=== PATIENT | male | born 1990 | race Caucasian/White ===

== ENCOUNTER 2022-02-10 17:33 | Emergency (ER) | payer SELFPAY ==
--- NOTE | ~2022-02-10 | XR_ITS ---
EXAM: XR hand RT min 3V DATE: 02/10/2022 18:51 HISTORY: crushed hand . COMPARISON: None available. FINDINGS: Normal mineralization. No fracture or dislocation. No lytic or blastic lesion. Joint space s are maintained. No erosion or periosteal change. Soft tissues within normal limits. IMPRESSION: No acute osseous finding in the right hand. Reviewed, dictated and finalized at location K. R
[2022-02-10 17:46] VITALS: BP 131/79; PULSE 92; RESP 18; TEMP 36.9; O2SAT 98
--- NOTE | 2022-02-10 18:15 | ED.UPPEXIN ---
HPI - Extremity Injury (Upper) General Chief Complaint: Extremity Injury, Upper Stated Complaint: right hand pain Time Seen by Provider: 02/10/22 18:00 Source: patient Mode of arrival: ambulatory Limitations: no limitations History of Present Illness HPI narrative: Paul is a 31-year-old male patient presenting to the clinic today with complaints of right hand injury and right foot pain. He reports that he crushed his hand in between 2 pieces the rebar that was approximately 2000 lb per patient. He states he is unable to make a fist with his right hand and has pain to the base of the right thumb and 3rd and 4th fingers- Pain is radiating up his arm. He also reports that he has swelling to the right great toe joint that has come and gone. Related Data Allergies Allergy/AdvReac Type Severity Reaction Status Date / Time ketorolac [From Toradol] Allergy Hives Verified 02/10/22 17:49 tramadol Allergy Hives Verified 02/10/22 17:49 Review of Systems Review of Systems: Pertinent positives per HPI. Patient denies any fever, chills, rash, headache, visual changes, dizziness, cough, runny nose, sore throat, shortness of breath, chest pain, palpitations, nausea, vomiting, diarrhea, constipation, abdominal pain, or any urinary issues. PMFSH Comments At the time of my signature, I reviewed and agree with the nursing past medical, surgical, social, and family history. There is no relevant family history pertinent to the patient complaint. Exam Narrative: General: Well-developed, well nourished, in no apparent distress Head: Normocephalic, atraumatic. Cardio: Regular rate and rhythm, s1 and s2 normal, no murmur appreciated. Resp: Clear to auscultation bilaterally, no rhonchi, rales, wheezing or rubs. Musculoskeletal: No deformity, Unable to make a fist with the right hand, tenderness to palpation over the saddle joint and 3rd and 4th knuckles with pain radiating down into hand and arm, he is able to flex and extend his index finger fully, moderate swelling noted to the right hand was compared to the left hand, redness, swelling , erythema,and pain to palpation to the right proximal great toe joint, peripheral pulse strong, no edema, no cyanosis, normal gait and station Course Course Emergency Course: Portions of this record may have been created with voice recognition software. Level of Care: Express Care Visit Vital Signs Vital signs: Vital Signs Temperature 36.9 C 02/10/22 17:46 Pulse Rate 92 02/10/22 17:46 Respiratory Rate 18 02/10/22 17:46 Blood Pressure 131/79 02/10/22 17:46 Pulse Oximetry 98 02/10/22 17:46 Oxygen Delivery Room Air 02/10/22 17:46 Temperature 36.9 C 02/10/22 17:46 Pulse Rate 92 02/10/22 17:46 Respiratory Rate 18 02/10/22 17:46 Blood Pressure 131/79 02/10/22 17:46 Pulse Oximetry 98 02/10/22 17:46 Oxygen Delivery Room Air 02/10/22 17:46 Vital signs reviewed MDM - Extremity Injury (Upper) MDM Narrative Medical decision making narrative: At the time of visit patient is resting comfortably on the exam table. I suspect patient has gouty arthritis to the right foot. X-ray was performed of his right hand and shows no sign of malalignment or fracture. I suspect that this is a crush injury. Supportive measures were discussed with the patient he voiced understanding of discharge instructions. Explained to the patient that he can take Tylenol Motrin for pain and he got upset and said that does not work and that he will never get better because he cannot get something stronger Differential Diagnosis Differential diagnosis: Likely fracture of hand and other ( crush injury,) Imaging Data Radiologist's impression: Close Hand X-Ray (Signed) Carlos Julio - 02/10/22 [facility] [address] [address] XRay Report Signed Patient: Hatch,Jigar Cleo : 1990 MR
== END 2022-02-10 19:11 | disposition home or self-care (01) ==
PROVIDERS: Emergency Provider Nurse Practitioner Family
DX: S67.21XA Crushing injury of right hand, initial encounter (principal); W23.1XXA Caught, crushed, jammed, or pinched between stationary objects, initial encounter; M10.9 Gout, unspecified
CPT/HCPCS: 73130; 99203; G0463

== ENCOUNTER 2022-02-19 21:30 | Emergency (ER) | payer SELFPAY ==
--- NOTE | ~2022-02-19 | US_ITS ---
US scrotum doppler INDICATION: Left testicle pain TECHNIQUE: Testicular sonogram utilizing grayscale and color Doppler FINDINGS: The testes are normal in size and appearance. No focal lesions are seen. The right testes measures 3.9 x 3.7 x 2.3 cm centimeters, and the left testis measures 4.5 x 2.8 x 2.5 cm cm. There is normal vascular flow to both testes. The right and left epididymides appear normal. There is no varicocele or hydrocele. IMPRESSION: 1. NORMAL TESTICULAR ULTRASOUND. Reviewed, dictated and finalized at location A. TER PACKING MACHINE TENDER
[2022-02-19 21:35] VITALS: BP 140/105; PULSE 107; RESP 18; TEMP 36.7; O2SAT 96
--- NOTE | 2022-02-19 22:02 | ED.MALEGU ---
HPI - Male Genitourinary General Chief complaint: Urogenital-Male Stated complaint: LEFT GROIN PAIN Time Seen by Provider: 02/19/22 21:32 History of Present Illness HPI Narrative: 31-year-old male presents to the emergency room for sudden onset of left testicular pain. Patient states he was about to go to bed when he began experiencing a sharp, stabbing pain to his left testicle. Denies any known injury or trauma. Pain is not alleviated when lifting it up. Denies any dysuria or concern for or STIs. Denies fevers or abdominal pain. Related Data Allergies Allergy/AdvReac Type Severity Reaction Status Date / Time ketorolac [From Toradol] Allergy Hives Verified 02/10/22 17:49 tramadol Allergy Hives Verified 02/10/22 17:49 Review of Systems Review of Systems: CONSTITUTIONAL: Denies fever, chills, or sweats. EYES: Denies visual changes, redness, or discharge. ENT: Denies rhinorrhea, congestion, sore throat, or otalgia. CARDIOVASCULAR: Denies chest pain, palpitations, or edema. RESPIRATORY: Denies cough or dyspnea. GASTROINTESTINAL: Denies abdominal pain, nausea, vomiting, or diarrhea. GENITOURINARY: Reports left testicular pain SKIN: Denies rash or itching. MUSCULOSKELETAL: Denies back pain, joint pain, or myalgia. NEUROLOGIC: Denies headache, numbness, dizziness, or weakness. PSYCHIATRIC: Denies anxiety or depression. Exam Narrative: GENERAL: Well-appearing, well-nourished, no physical limitations, uncomfortable HEAD: Normocephalic, atraumatic. EYES: Conjunctivae normal, PERRLA and EOMI. CHEST: Clear to auscultation. No respiratory distress. No wheezes rales or rhonchi. HEART: Regular rate and rhythm. No murmur heard. Normal peripheral pulses. ABDOMEN: Soft, nontender, nondistended, normal active bowel sounds. : Normal external male exam +TTP to left testicle, no obvious swelling or ecchymosis. Negative prehns sign. +cremasteric reflex bilaterally BACK: No CVA tenderness; No cervical/thoracic/lumbar tenderness, step-offs, bony abnormality; FROM EXTREMITIES: Normal range of motion. No edema. No clubbing or cyanosis SKIN: Warm, dry, no rash. No noted wounds NEURO: No focal deficits. Alert and oriented x3. MAEW. CN's II-XI intact bilaterally, normal gait PSYCH: Cooperative. Normal mood and affect. Course Vital Signs Vital signs: Vital Signs Temperature 36.7 C 02/19/22 21:35 Pulse Rate 107 H 02/19/22 21:35 Respiratory Rate 18 02/19/22 21:35 Blood Pressure 140/105 H 02/19/22 21:35 Pulse Oximetry 96 02/19/22 21:35 Oxygen Delivery Room Air 02/19/22 21:35 Temperature 36.7 C 02/19/22 21:35 Pulse Rate 107 H 02/19/22 21:35 Respiratory Rate 18 02/19/22 21:35 Blood Pressure 140/105 H 02/19/22 21:35 Pulse Oximetry 96 02/19/22 21:35 Oxygen Delivery Room Air 02/19/22 21:35 MDM - Male Genitourinary Lab Data 02/19/22 21:52 02/19/22 21:52 Labs: Lab Results 02/19/22 02/19/22 02/19/22 Range/Units 21:52 21:52 21:55 WBC Pending RBC Pending Hgb Pending Hct Pending MCV Pending MCH Pending MCHC Pending RDW Pending Plt Count Pending MPV Pending Immature Gran % (Auto) Pending Neut % (Auto) Pending Lymph % (Auto) Pending [place] % (Auto) Pending Eos % (Auto) Pending Baso % (Auto) Pending Lymph # (Auto) Pending [place] # (Auto) Pending Eos # (Auto) Pending Baso # (Auto) Pending Abs Immat Gran (auto) Pending Absolute Neuts (auto) Pending Absolute Nucleated RBC Pending Nucleated RBC % Pending Sodium Pending Potassium Pending Chloride Pending Carbon Dioxide Pending Anion Gap Pending BUN Pending Creatinine Pending Estim Creat Clear Calc Pending Estimated GFR Pending Glucose Pending Calcium Pending Total Bilirubin Pending AST Pending ALT Pending Alkaline Phosphatase
[2022-02-19 22:03] LABS: Add Urine Microscopic? NO; Appearance Urine Clear (Clear); Bilirubin Urine Negative (Negative); Blood Urine Negative (Negative); Color Urine Yellow (Yellow); Glucose Urine UA Negative (Negative); Ketones Urine Negative (Negative); Leukocyte Esterase Ur Negative LEU/UL (Negative); Nitrate Urine Negative (Negative); Protein Urine Negative (Negative); Urobilinogen Urine 0.2 mg/dL (<2.0); pH Urine 7.5 (5.0-9.0)
[2022-02-19 22:03] LABS: Basophils Percent Auto 0.4 % (0.2-1.2); Eosinophils Absolute Auto 0.1 K/mm3 (0-0.3); Eosinophils Percent Auto 0.7 % (0-4.4); Hematocrit 49.8 % (42.0-52.0); Hemoglobin 17.4 g/dL (14.0-18.0); Immature Granulocyte Absolute 0.01 K/mm3 (0.00-0.031); Immature Granulocyte Percent A 0.1 % (0-0.5); Lymphocytes Percent Auto 19.1 % (18.3-44.2); Mean Corpuscular HGB Conc 34.9 g/dl (32-36); Mean Corpuscular Hemoglobin 29.9 pg (26-34); Mean Corpuscular Volume 85.6 fl (80-100); Monocytes Absolute Auto 0.7 K/mm3 (0.1-0.6); Monocytes Percent Auto 6.9 % (2.6-8.5); Neutrophils Absolute Auto 7.3 K/mm3 (1.3-6.7); Neutrophils Percent Auto 72.8 % (45.5-73.1); Platelet Count Result 269 k/mm3 (150-375); Red Blood Count 5.82 M/mm3 (4.6-6.20); Red Cell Distribution Width 12.7 % (11.5-14.5)
[2022-02-19 22:07] LABS: Chloride 101 mmol/L (98-107)
[2022-02-19 22:17] LABS: Alanine Aminotransferase 29 U/L (6-50); Albumin Level 4.7 g/dL (3.5-5.1); Alkaline Phosphatase 85 U/L (38-126); Anion Gap 6 mmol/L (8-16); Aspartate Amino Transferase 33 U/L (17-59); Bilirubin,Total 0.5 mg/dL (0.2-1.3); Blood Urea Nitrogen 10 mg/dL (9-20); Calcium 9.6 mg/dL (8.4-10.2); Carbon Dioxide 31 mmol/L (22-30); Estimated CRCL calculation 89 ml/min; Estimated Glomerular Filt Rate > 60; Glucose 106 mg/dL (65-110); Potassium 4.2 mmol/L (3.4-5.0); Sodium 138 mmol/L (137-145)
[2022-02-19 22:19] LABS: RBC Urine 0-2 /hpf (0-2)
[2022-02-19] MEDS: HYDROmorphone HCL INJ (*CRX) 1 MG/ML SYR IV PUSH (22:51)
== END 2022-02-19 23:19 | disposition home or self-care (01) ==
PROVIDERS: Emergency Provider Nurse Practitioner Family
DX: N50.812 Left testicular pain (principal)
CPT/HCPCS: 36415; 76870; 80053; 81003; 85025; 93976; 96374; 99284; J1170

== ENCOUNTER 2022-02-21 14:49 | Emergency (ER) | payer SELFPAY ==
--- NOTE | ~2022-02-21 | XR_ITS ---
EXAM: XR hand RT min 3V DATE: 02/21/2022 16:00 HISTORY: CUT HIS R.THUMB ON MIRROR, PAIN GOING DOWN PINKY TO WRIST. . COMPARISON: 02/02/2022. FINDINGS: Normal mineralization. No fracture none. The right fifth DIP joint is slightly hyperextend ed in the lateral view. No lytic or blastic lesion. Joint spaces are maintained. No erosion or perios teal change. Soft tissues within normal limits. IMPRESSION: Slight hyperextension of the right fifth DIP joint in the lateral view which may be posit ional or related to injury if accompanied by pain and tenderness. No acute fracture in the right hand . No radiopaque foreign body. Reviewed, dictated and finalized at location K. NING ANALYST IMPRESSION: Slight hyperextension of the right fifth DIP joint in the lateral v iew which may be positional or related to injury if accompanied by pain and ten derness. No acute fracture in the right hand. No radiopaque foreign body.
[2022-02-21 15:17] VITALS: BP 112/82; PULSE 118; RESP 16; TEMP 36.7; O2SAT 98
[2022-02-21] MEDS: LIDOCAINE, EPINEPHRINE, TETRACAINE VISCOUS SOLN 3 ML (16:34)
--- NOTE | 2022-02-21 16:44 | ED.WOUNDLAC ---
HPI - Wound/Laceration General Chief Complaint: Wound/Laceration Stated Complaint: hand lac Time Seen by Provider: 02/21/22 16:14 History of Present Illness HPI narrative: Patient is a 31-year-old [id number] male here for evaluation of a laceration sustained to the base of his right thumb about 30 minutes prior to arrival. Patient states that he is taking a mirror off of a wall and accidentally sliced his hand on a piece of glass. His tetanus is up-to-date. He denies any numbness or tingling in his thumb or hand. No difficulty moving the hand. Related Data Allergies Allergy/AdvReac Type Severity Reaction Status Date / Time ketorolac [From Toradol] Allergy Hives Verified 02/21/22 16:33 tramadol Allergy Hives Verified 02/21/22 16:33 Review of Systems Review of Systems: Gen.: Denies fevers or chills Eyes: Denies eye pain or visual change ENT: Denies congestion Respiratory: Denies shortness of breath or cough CV: Denies chest pain or palpitations GI: Denies abdominal pain nausea, emesis or diarrhea : denies burning, urgency, frequency or hematuria Musculoskeletal: Reports hand pain. Neuro: Denies numbness, tingling, weakness or focal weakness Skin: Denies rash Except as documented, all other systems reviewed and negative Exam Narrative: Gen: Alert, oriented, no acute disease Eyes: EOMI, no icterus Pulm: Respirations even and unlabored, symmetric thorax expansion, no audible stridor or visible cyanosis CV: Regular rate per telemetry GI: No distension, no voluntary/involuntary guarding Neuro: AOx4, moves all extremities without apparent difficulty or weakness, follows commands MSK: Full range of motion in the thumb and hand without difficulty. Brisk cap refill in digits 1 through 5. Skin: Patient has a 1.5 cm C-shaped laceration to the dorsal aspect of his right hand at the base of his thumb with no active bleeding, no visible tendon or nerve injury. Psych: Normal mood/affect, insight/judgement good, adequate fund of knowledge, recent/remote memory intact Course Vital Signs Vital signs: Vital Signs Temperature 98.0 F 02/21/22 15:17 Pulse Rate 118 H 02/21/22 15:17 Respiratory Rate 16 02/21/22 15:17 Blood Pressure 112/82 02/21/22 15:17 Pulse Oximetry 98 02/21/22 15:17 Oxygen Delivery Room Air 02/21/22 15:17 Temperature 98.0 F 02/21/22 15:17 Pulse Rate 88 02/21/22 17:27 Respiratory Rate 15 02/21/22 17:27 Blood Pressure 139/89 02/21/22 17:27 Pulse Oximetry 99 02/21/22 17:27 Oxygen Delivery Room Air 02/21/22 15:17 Procedures Laceration Laceration 1: Date: 02/21/22 Time: 17:00 Site: other (hand) Side (If applicable): right Size (cm): 1.5 Description: linear Depth: simple, single layer Local Anesthetic: other anesthetic (LET) Amount of anesthesia used (mL): 2 ====== Skin Level ====== Skin layer closed with: other (ethilon) Size (cm): 5-0 Number of sutures: 2 Technique: simple, interrupted ====== Subcutaneous Layer ====== ====== Muscle Layer ====== ====== Tendon Layer ====== MDM - Wound/Laceration MDM Narrative Medical decision making narrative: 31 yo M here for evaluation of a laceration to the base of his right thumb 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 wound was cleansed and irrigated; patient is NVID; no evidence of tendon or nerve injury. Closure obtained with sutures. XRs obtained in triage show a deformity of the 5th digit; patient reports prior injury. This is not where his laceration is and feel this is an incidental finding. Pt educated on wound care and d/c with PCP follow up. Discharge Plan Discharge Clinical Impression: Laceration Patient Disposition: Home, Self-Care Condition: Stable Instructions: Antibiotic Form, Care For Your Stitches (ED), Laceration (ED) Additional Instructions: You had 2 stitches placed
[2022-02-21] MEDS: HYDROcodone/acetaminophen (*CRX) 5-325 MG TABLET 1 TAB PO (16:45)
[2022-02-21 17:27] VITALS: BP 139/89; PULSE 88; RESP 15; O2SAT 99
== END 2022-02-21 17:31 | disposition home or self-care (01) ==
LOC: ANHED 17:25
PROVIDERS: Emergency Provider Physician Assistant
DX: S61.011A Laceration without foreign body of right thumb without damage to nail, initial encounter (principal); W25.XXXA Contact with sharp glass, initial encounter
CPT/HCPCS: 12001; 73130; 99283; A9270